=== PATIENT | female | born 1975 | race Caucasian/White ===

== ENCOUNTER 2019-07-30 21:00 | Inpatient (IN) ==
[2019-07-30] MEDS ORDERED: 0.9 % SODIUM CHLORIDE 1,000 ML IV ONE (21:28)
--- NOTE | 2019-07-30 21:40 | Emergency Department Note ---
General Adult HPI - General Chief complaint: Recheck/Abnormal Lab/Rx Stated complaint: kidney trouble Time Seen by Provider: 07/30/19 21:12 Source: patient Mode of arrival: ambulatory Limitations: no limitations - History of Present Illness HPI Narrative: 43-year-old female comes in after a 5-day history of general malaise fatigue and cough. No chest pain though. She does have coronary artery disease and has had 2 stents placed. Denies fever. She was seen earlier at urgent care by Dr. Juana Guillermo-I reviewed that note. Dr. Guillermo called me with report before sending the patient over. Patient was worked up with chest x-ray EKG and laboratory. Flu swab was negative. Chest x-ray and EKG were unrevealing. However her laboratory showed acute renal failure with new creatinine level of 3.5 she is also noted to have pyuria. Patient denies any urinary symptoms however - Related Data Home Medications Medication Instructions Recorded Confirmed Divalproex Sodium [Depakote] 1,500 mg PO BID 01/16/15 07/30/19 sertraline 100 mg tablet 75 mg PO QPM 03/24/16 07/30/19 Clopidogrel Bisulfate [Plavix] 75 mg PO DAILY 07/30/19 07/30/19 Furosemide [Lasix] 20 mg PO DAILY 07/30/19 07/30/19 Spironolactone [Aldactone] 25 mg PO DAILY 07/30/19 07/30/19 amLODIPine [Norvasc] 10 mg PO DAILY 07/30/19 07/30/19 Allergies Allergy/AdvReac Type Severity Reaction Status Date / Time phenytoin [From DILANTIN] Allergy Unknown Hives Verified 04/27/19 13:14 tape Allergy Uncoded 01/16/15 17:40 Review of Systems All systems ED: reviewed and negative except as stated. Past Medical History - Past Medical History Attestation: Yes: The following information was validated with the patient. PMF Narrative: Family History (Last Updated 04/27/19 @ 13:55 by Pramod Avendaño DO) Mother Substance abuse CVA (cerebral vascular accident) Father Diabetes mellitus Parkinsons disease Daughter Asthma Grandfather Malignant lung neoplasm Carcinoma of prostate Diabetes mellitus Sister Mental disorder Family/Other Bone cancer Family/Other Diabetes mellitus Medical History (Last Reviewed 07/30/19 @ 16:53 by Marlyn Guillermo DO) Cigarette smoker (Chronic) joint terminal attack controller (current) use of anticoagulants (Chronic) Coronary artery disease (Chronic ~02/2017) Diabetes mellitus (Resolved) Essential hypertension (Chronic) Overweight (BMI 25.0-29.9) (Chronic) Seizure disorder (Chronic) Prolapsed thoracic intervertebral disc (Chronic) Insomnia (Chronic) Chronic hepatitis C (Chronic) Cannabis dependence (Chronic) Anxiety, generalized (Chronic) Depression, major, recurrent (Chronic) Abdominal pain (Resolved) Degeneration of intervertebral disc (Resolved) Pain, dental (Resolved) Unintentional weight loss (Resolved) Past Surgical History (Last Updated 04/27/19 @ 13:54 by Pramod Avendaño DO) History of coronary artery stent placement (Acute ~02/2017) History of bilateral carpal tunnel release (Chronic) History of lumbar surgery (Chronic) History of total abdominal hysterectomy and bilateral salpingo-oophorectomy (Chronic) Medical history: Reports: CAD (coronary artery disease), DM, renal disease, seizures, other (chronic hep c). Denies: cancer, chronic narcotics, CVA, DVT, GERD, myocardial infarction, pneumonia, pulmonary embolus, TIA Psychiatric history: Reports: anxiety, depression Surgical history ED: Reports: back surgery, hysterectomy - Social History smoking status: Current every day smoker Alcohol use: Reports: None (04/27/2019) Drug use: Reports: none, marijuana Physical Exam No acute distress resting comfortably. Normocephalic atraumatic. Conjunctive are clear sclerae white nonicteric. No nasal discharge or congestion. Oropharynx is pink and moist. Overall poor dentition with multiple missing teeth. Neck is supple without lymphadenopathy thyromegaly or carotid bruit. Heart is regular rate and rhythm no murmur appreciated. Lungs are clear to auscultation bilaterally without wheezes rales rhonchi or respiratory distress. Abdomen soft nontender nondistended. No peritoneal signs or guarding. No pedal edema. +2 radial pulse. Alert oriented able to answer questions appropriate Limitations: no limitations Course Vital Signs Temperature 97.0 F 07/30/19 21:04 Pulse Rate 69 07/30/19 21:04 Respiratory Rate 16 07/30/19 21:04 Blood Pressure 114/75 07/30/19 21:04 Pulse Oximetry (%) 100 07/30/19 21:04 Temperature 97.0 F 07/30/19 21:04 Pulse Rate 70 07/30/19 23:16 Respiratory Rate 16 07/30/19 21:04 Blood Pressure 128/82 07/30/19 23:16 Pulse Oximetry (%) 100 07/30/19 23:16 Medical Decision Making - Lab Data Lab results reviewed: Yes I reviewed the patient's lab results. Lab Results 07/30/19 07/30/19 07/30/19 Range/Units 21:37 21:37 21:37 POC Hct 32.0 L (36.0-48.0) % VBG Lactic Acid 1.2 (0.5-2.0) mmol/L POC Sodium 134 (133-145) mmol/L POC Potassium 3.2 L (3.3-5.1) mmol/L POC Chloride 102 (96-108) mmol/L POC Total CO2 23 (22-30) mmol/L POC BUN 35 H (6-20) mg/dl POC Creatinine 4.0 H (0.6-1.1) mg/dl POC Glucose 258 H (70-105) mg/dL POC WB Ioniz Calcium 1.12 L (1.16-1.32) mmol/L Magnesium 2.4 (1.6-2.5) mg/dL Troponin T < 0.01 (0-0.03) ng/ml NT-Pro-B Natriuret Pep 1947.0 H (0-125) pg/ml Lipase 28 (7-60) U/L Urine Color Urine Appearance Urine pH (5.0-9.0) Ur Specific [place] (1.000-1.035) Urine Protein (NEG) mg/dL Urine Glucose (UA) (NEG) mg/dL Urine Ketones (NEG) mg/dL Urine Occult Blood (<0.03) mg/dL Urine Nitrate (NEG) Urine Bilirubin (NEG) mg/dL Urine Urobilinogen (NEG) mg/dL Ur Leukocyte Esterase (NEG) /uL Urine RBC (0-1) /hpf Urine WBC (0-4) /hpf Ur Squamous Epith Cells (0-4) /hpf Ur Transition Epith Cell (0-2) /hpf Uric Acid Crystals (0) /hpf Urine Bacteria (0) /hpf Hyaline Casts (0-2) /lpf Urine Mucus (0) /hpf Ur Culture Indicated? 07/30/19 Range/Units 21:50 POC Hct (36.0-48.0) % VBG Lactic Acid (0.5-2.0) mmol/L POC Sodium (133-145) mmol/L POC Potassium (3.3-5.1) mmol/L POC Chloride (96-108) mmol/L POC Total CO2 (22-30) mmol/L POC BUN (6-20) mg/dl POC Creatinine (0.6-1.1) mg/dl POC Glucose (70-105) mg/dL POC WB Ioniz Calcium (1.16-1.32) mmol/L Magnesium (1.6-2.5) mg/dL Troponin T (0-0.03) ng/ml NT-Pro-B Natriuret Pep (0-125) pg/ml Lipase (7-60) U/L Urine Color Petra Urine Appearance Cloudy Urine pH 5.0 (5.0-9.0) Ur Specific [place] 1.021 (1.000-1.035) Urine Protein 100 A (NEG) mg/dL Urine Glucose (UA) Negative (NEG) mg/dL Urine Ketones Neg (NEG) mg/dL Urine Occult Blood 0.03 A (<0.03) mg/dL Urine Nitrate Neg (NEG) Urine Bilirubin Neg (NEG) mg/dL Urine Urobilinogen 2.0 A (NEG) mg/dL Ur Leukocyte Esterase 250 A (NEG) /uL Urine RBC 21 H (0-1) /hpf Urine WBC 70 H (0-4) /hpf Ur Squamous Epith Cells 7 H (0-4) /hpf Ur Transition Epith Cell 1 (0-2) /hpf Uric Acid Crystals Few A (0) /hpf Urine Bacteria 0 (0) /hpf Hyaline Casts 45 H (0-2) /lpf Urine Mucus Mod (0) /hpf Ur Culture Indicated? No Reviewed recent labs from urgent care as above - Radiology Data Radiology results reviewed: Yes I reviewed the patient's radiology results. CT scan of the abdomen pelvis without contrast shows asymmetric edema of the right kidney consistent with pyelonephritis Disposition Pt seen by SPOT CHECKER/PA only: No Clinical Impression: Pyelonephritis Acute renal failure Qualifiers: Acute renal failure type: unspecified Qualified Code(s): N17.9 - Acute kidney failure, unspecified Summary: New onset acute renal failure with creatinine going from 1.7 now to 3.5. She is still making urine but it is quite viscous and even pyuria. Laboratory ordered along with CT scan of the abdomen pelvis without contrast. Start IV fluids We gave her some hydrocodone for her back pain. Start Rocephin for pyelonephritis. CT scan is consistent with right-sided pyelonephritis. I briefly discussed the situation with the patient and let her know her results Discussed findings with hospitalist, Dr. Dyer. He agreed to accept the patient for further care and evaluation in the hospital. I also discussed the case with Dr. Newberry, operator cavity pump, who will consult on the patient tomorrow. Disposition: Xfer As Inpt ([facility]) Condition: Fair Referrals: Cj Au ARNP [Primary Care Provider] - Missael Newberry MD [Physician] -
[2019-07-30 21:49] LABS: POC Blood Urea Nitrogen 35 mg/dl (6-20); POC CO2 23 mmol/L (22-30); POC Calcium, Ionized 1.12 mmol/L (1.16-1.32); POC Chloride 102 mmol/L (96-108); POC Glucose, Random 258 mg/dL (70-105); POC Potassium 3.2 mmol/L (3.3-5.1); POC Sodium 134 mmol/L (133-145)
[2019-07-30] MEDS ORDERED: HYDROcodone/APAP 5/325MG TABLET PO ONE (22:26)
[2019-07-30 22:43] LABS: Appearance,Urine CLOUDY; Bacteria,Urine 0 /hpf (0); Bilirubin,Urine NEG (NEG); Color,Urine AMBER; Culture Indicated,Urine NO; Glucose,Urine (UA) NEGATIVE (NEG); Ketones,Urine NEG (NEG); Leukocyte Esterase,Urine 250 /uL (NEG); Mucus,Urine MOD /hpf (0); Nitrate,Urine NEG (NEG); Protein,Urine 100 mg/dL (NEG); Specific Gravity,Urine 1.021 (1.000-1.035); Uric Acid Crystals,Urine FEW /hpf (0); Urine Blood 0.03 mg/dL (<0.03); Urine Hyaline Cast 45 /lpf (0-2); Urine RBC 21 /hpf (0-1); Urine Squamous Epithelial Cell 7 /hpf (0-4); Urine Transitional Epi Cells 1 /hpf (0-2); Urine WBC 70 /hpf (0-4)
[2019-07-30] MEDS ORDERED: cefTRIAXone 1 GM VIAL IV ONE (23:13)
--- NOTE | 2019-07-31 01:07 | Internal Med History&Physical ---
Medical - H&P: [facility] Patient information: Note initiated : 07/31/19 at 1:07 am Service Date, if different from initiated Date: [] Patient: Dawn Yang 43 y/o F admitted on 07/31/19 for kidney trouble. Chief Complaint: [Fever, chills, body ache and weakness for 4days] History of present illness: Ms. Yang is a 43 year old F with a history of CAD status post stenting in May 2018 and March 2017, currently smoker, history of diabetes, and hepatitis C who presented to the ER due to fever, chills, body ache and weakness for 4 days. Patient also states that she had nausea, vomiting and watery diarrhea 2 days ago associated with intermittent mild lower abdominal pain. In the ER, UA was positive and a CT abdomen showed pyelonephritis. When I saw this patient in the ER, abdomen symptoms mentioned above, she denied any other symptoms. All systems: reviewed and no additional remarkable complaints except as stated (Fever, chills, nausea, vomiting, abdominal pain, body ache and weakness) Medical - H&P: H Medical history: Hepatitis C, CAD, history of diabetes, Family history: reviewed and not pertinent (Father had a diabetes, Parkinson's disease, and skin cancer) Smoking status: Current every day smoker Drug use: marijuana Alcohol use: none Medical - H&P: Meds Home Medications Medication Instructions Recorded Confirmed Type Divalproex Sodium [Depakote] 1,500 mg PO BID 01/16/15 07/31/19 History sertraline 100 mg tablet 75 mg PO QPM 03/24/16 07/31/19 History Clopidogrel Bisulfate [Plavix] 75 mg PO DAILY 07/30/19 07/30/19 History Furosemide [Lasix] 20 mg PO DAILY 07/30/19 07/30/19 History Spironolactone [Aldactone] 25 mg PO DAILY 07/30/19 07/30/19 History amLODIPine [Norvasc] 10 mg PO DAILY 07/30/19 07/30/19 History Allergies Allergy/AdvReac Type Severity Reaction Status Date / Time phenytoin [From DILANTIN] Allergy Unknown Hives Verified 04/27/19 13:14 tape Allergy Uncoded 01/16/15 17:40 Medical - H&P: Exam - Constitutional Vitals: Temp Pulse Resp BP Pulse Ox 97.7 F 66 20 123/76 100 07/31/19 00:48 07/31/19 00:16 07/31/19 00:48 07/31/19 00:48 07/31/19 00:48 - Other Additional findings: General: No acute distress Head: Atraumatic, normocephalic Eyes/N/T: PERRL, EOMI Neck: neck supple, no thyroid megaly CV: RRR, No murmurs, Pulm: CTA, no crackles or wheezing Abd: soft, mild tenderness over lowwer abd, +BS x4. mild CVA tenderness Ext: No edema, cyanosis or tenderness. Neuro: A+OX3, grossly no focal neurological deficits Skin: warm/dry Psych: normal mood Medical - H&P: Reslt - Labs Labs: Cardiac Enzymes 07/30/19 Range/Units 21:37 Troponin T < 0.01 (0-0.03) ng/ml Urine 07/30/19 Range/Units 21:50 Urine Color Petra Urine Appearance Cloudy Urine pH 5.0 (5.0-9.0) Ur Specific [place] 1.021 (1.000-1.035) Urine Protein 100 A (NEG) mg/dL Urine Glucose (UA) Negative (NEG) mg/dL Medical - H&P: A/P - Narrative A/P Narrative: Assessment: 1. Acute pyelonephritis 2. MARTÍNEZ on chronic kidney failure 3. Current smoker 4. CAD, s/p stenting 5. DM type 2 6. Hx of seizure disorder 7. Chronic hepatitis C 8. Acute hypoxic respiratory failure 9. Hypokalemia Plan: 1. UA compatible with urinary tract infection and CT suggestive of pyelonephritis (as per ER physician) Ceftriaxone was started in the ER, continue ceftriaxone Blood culture and urine culture Continue gentle IV fluids 2. Avoid nephrotoxic meds Intake and output, repeat the renal function in morning. IV fluid 3. Smoking cessation counseled. Nicotine patch if necessary 4. Continue Plavix, added aspirin. Patient is not on statin. Liver function ordered and results pending. If liver function normal, I start Lipitor 5. Continue home divalproex for hx of seizure 6. Patient had one episode of desaturation, pulse ox. Oxygen therapy if necessary. 7. Potassium was given, repeat has minimal 8. Patient states that she has had diabetes in the past. Now she is not on any diabetic meds. Diabetic diet Hemoglobin A1c Insulin sliding scale 9. Patient home meds including Lasix and spironolactone. BNP. May order echocardiogram if BNP is elevated. 10. DVT prophylaxis: Heparin 11. CODE STATUS: Full
[2019-07-31 01:20] LABS: Amphetamine Screen,Urine NONE DETECTED (NONDETECTED); Barbiturate Screen,Urine NONE DETECTED (NONDETECTED); Benzodiazepines Screen,Urine NONE DETECTED (NONDETECTED); Cannabinoid Screen,Urine SUSPECT POSITIVE (NONDETECTED); Cocaine Screen,Urine NONE DETECTED (NONDETECTED); Opiate Screen,Urine NONE DETECTED (NONDETECTED); Oxycodone, Urine Screen NONE DETECTED (NONDETECTED); Phencyclidine Screen,Urine NONE DETECTED (NONDETECTED)
[2019-07-31] MEDS ORDERED: cefTRIAXone 1 GM in DEXTROSE 5% IN WATER 50 ML IV SCH (01:30)
[2019-07-31] MEDS ORDERED: ONDANSETRON 4 MG ODT TABLET SL PRN (01:30)
[2019-07-31] MEDS ORDERED: DEXTROSE 50% 50 ML VIAL IV PRN (01:38)
[2019-07-31] MEDS ORDERED: DEXTROSE 31 GM ORAL.SUSP PO PRN (01:38)
[2019-07-31] MEDS: 0.9 % SODIUM CHLORIDE 1,000 ML IV SCH ×3 (02:00→14:32)
--- NOTE | 2019-07-31 04:33 | Cat Scan Report ---
CLINICAL INFORMATION: Pyuria. Acute renal failure. COMPARISON: Abdomen and pelvic CT 11/30/2014 TECHNIQUE: 0.625 mm helical slices were obtained from the mid heart through the subtrochanteric regions. Following reconstruction, 2.5 mm sagittal, coronal and axial reformatted images were processed and reviewed at bone and soft tissue windows.The exam was performed using radiation dose optimization techniques including, but not limited to, automated exposure control, adjustment of the mA and/or kV according to patient size and use of iterative reconstruction technique. FINDINGS: Both noncontrasted kidneys are normal in size: The right is 11.5 x 6.4 cm and the left is 11.5 x 6 cm. The attenuation of the right kidney is mildly inhomogeneous supportive of diffuse inflammation. There is also mild inflammation or edema in the right perinephric space extending into the right paracolic gutter. There is no stone, hydronephrosis or discrete abscess. The lung bases show no abnormality - there are no pleural effusions. The visualized heart is normal. Abdominal images show the noncontrasted liver is normal. The gallbladder is surgically absent. Intrahepatic and common bile ducts are normal caliber: CBD is 5 mm. Both noncontrast adrenal glands, spleen, pancreas and aorta are normal. There is no free air, or adenopathy. Pelvic images show urinary bladder is unremarkable. The uterus is anteflexed and normal in size: 6.5 x 4 cm. Both ovaries are unremarkable. The stomach, small and large bowel are grossly normal. Bone windows show L3-4 and L4-5 anterior/posterior fusion/laminectomy changes provided by her body grafts, pedicle screws and interbody strut. Alignment is anatomic. There is severe L2-3 degenerative disc disease has accelerated since previous study resulting in severe central canal, right lateral recess IV foraminal narrowing. Large Schmorl's nodes invaginating the L2 vertebral body resulting in moderate compression which has progressed considerably. IMPRESSION: 1. Mild inhomogeneity of the right renal parenchyma with right perinephric edema or inflammation including the paracolic gutter. The possibility of nephritis should be entertained. No evidence of discrete abscess or hydronephrosis. 2. Severe L2-3 Central canal, right lateral recess and IV foraminal stenosis impinging the exiting right L2 and descending right L3 nerve root. Please correlate with radiculopathy. Interpreted and Authenticated by: Miller Pascual 07/31/19
[2019-07-31] MEDS: 0.9 % SODIUM CHLORIDE 10 ML SYRINGE IV SCH ×3 (05:24→20:48)
[2019-07-31] MEDS: HYDROcodone/APAP 5/325MG TABLET PO PRN ×3 (06:30→22:59)
[2019-07-31] MEDS: PANTOPRAZOLE 40 MG TABLET PO SCH (07:49)
[2019-07-31] MEDS: INSULIN LISPRO 1 UNIT/0.01 ML UNIT SQ SCH ×4 (08:35→20:55)
[2019-07-31] MEDS ORDERED: FUROSEMIDE 20 MG TABLET PO SCH (09:00)
[2019-07-31] MEDS ORDERED: SPIRONOLACTONE 25 MG TABLET PO SCH (09:00)
[2019-07-31] MEDS: ASPIRIN 81 MG TAB.CHEW PO SCH (09:12)
[2019-07-31] MEDS: amLODIPine 10 MG TABLET PO SCH (09:12)
[2019-07-31] MEDS: DIVALPROEX SODIUM 250 MG TABLET PO SCH ×2 (09:12→20:47)
[2019-07-31] MEDS: CLOPIDOGREL 75 MG TABLET PO SCH (09:13)
[2019-07-31] MEDS: HEPARIN 5,000 UNIT/ML VIAL SQ SCH ×2 (09:13→20:48)
[2019-07-31] MEDS: POTASSIUM CHLORIDE 20 MEQ TABLET PO SCH ×3 (09:13→11:53)
--- NOTE | 2019-07-31 13:22 | Internal Med Progress Note ---
Medical - PN: Subj Patient information: Note initiated : 07/31/19 at 1:13 pm Service Date, if different from initiated Date: [] Patient: Dawn Yang a 43 y/o F admitted on 07/31/19 for kidney trouble. Chief Complaint: [] Interval history: Ms. Yang is a 43 year old F with a history of CAD status post stenting in J an2018 and March 2017, currently smoker, history of diabetes, and hepatitis C who presented to the ER due to fever, chills, body ache and weakness for 4 days. Patient also states that she had nausea, vomiting and watery diarrhea 2 days ago associated with intermittent mild lower abdominal pain. In the ER, UA was positive and a CT abdomen showed pyelonephritis. When I saw this patient in the ER, abdomen symptoms mentioned above, she denied any other symptoms. 07/31 - Constitutional Vitals: Vital Signs Temp Pulse Resp BP Pulse Ox 98.1 F 64 16 111/68 97 07/31/19 11:55 07/31/19 11:55 07/31/19 11:55 07/31/19 11:55 07/31/19 11:55 Period Temp Pulse Resp BP Sys/Interiano Pulse Ox Last 24 Hr 97.0 F-98.2 F 62-76 16-20 102-133/63-82 84-100 Intake and Output 07/30/19 07/31/19 07/31/19 21:59 05:59 13:59 Intake Total 1000 Output Total 750 550 Balance 250 -550 Weight 85.275 kg 86.137 kg Intake & Output: Intake & Output 07/30/19 07/31/19 07/31/19 21:59 05:59 13:59 Intake Total 1000 Output Total 750 550 Balance 250 -550 Weight 85.275 kg 86.137 kg Intake: IV 1000 Sodium Chloride 0.9% 1,000 ml @ 1000 Wide Open IV BOLUS ONE Rx#: [id number] Output: Void Amount 750 550 Other: Urine Appearance Clear Urine Color Dark Yellow Urine Odor Strong Exam: General: Alert, Awake, No acute Distress Eyes/N/T: EOMI, Head/Neck: neck supple, CV: RRR, No murmurs, Pulm: Clear b/l, no wheezing/rhonchi/rales Abd: soft, mild lower abd tender, +BS x4, mild cva tenderness Ext: no clubbing/cyanosis/edema Neuro: Alert, no focal deficits, moves all extremities, Skin: warm/dry Medical - PN: Obj Da - Labs CBC & Chem 7: 07/31/19 13:26 07/31/19 13:26 Labs: Abnormal Lab Results 07/31/19 07/30/19 07/30/19 05:25 21:50 21:50 POC Hct POC Potassium POC BUN POC Creatinine POC Glucose POC WB Ioniz Calcium NT-Pro-B Natriuret Pep 1255.0 H Urine Protein 100 A Urine Occult Blood 0.03 A Urine Urobilinogen 2.0 A Ur Leukocyte Esterase 250 A Urine RBC 21 H Urine WBC 70 H Ur Squamous Epith Cells 7 H Uric Acid Crystals Few A Hyaline Casts 45 H U Marijuana (THC) Screen Suspect positive A 07/30/19 21:37 POC Hct 32.0 L POC Potassium 3.2 L POC BUN 35 H POC Creatinine 4.0 H POC Glucose 258 H POC WB Ioniz Calcium 1.12 L NT-Pro-B Natriuret Pep 1947.0 H Urine Protein Urine Occult Blood Urine Urobilinogen Ur Leukocyte Esterase Urine RBC Urine WBC Ur Squamous Epith Cells Uric Acid Crystals Hyaline Casts U Marijuana (THC) Screen Meds: Medications Hydrocodone Bitart/Acetaminophen (Ensign 5/325mg) 1 tab PO Q8HP PRN; Protocol PRN Reason: Per Pain Protocol Stop: 08/03/19 01:29 Last Admin: 07/31/19 06:30 Dose: 1 tab Documented by: Amlodipine Besylate (Norvasc) 10 mg PO DAILY [facility] Last Admin: 07/31/19 09:12 Dose: 10 mg Documented by: Aspirin (Aspirin) 81 mg PO DAILY [facility] Last Admin: 07/31/19 09:12 Dose: 81 mg Documented by: Ceftriaxone Sodium (Rocephin) 1 gm IV Q24H [facility] Clopidogrel Bisulfate (Plavix) 75 mg PO DAILY [facility] Last Admin: 07/31/19 09:13 Dose: 75 mg Documented by: Dextrose (Dextrose 50%) 0 ml IV UD PRN PRN Reason: Hypoglycemia Diagnostic Test (Pha) (Accu-Chek) 1 each FS ACHS [facility] Last Admin: 07/31/19 11:58 Dose: 1 each Documented by: Divalproex Sodium (Depakote Delayed Release) 1,500 mg PO BID [facility] Last Admin: 07/31/19 09:12 Dose: 1,500 mg Documented by: Furosemide (Lasix) 20 mg PO DAILY [facility] Last Admin: 07/31/19 09:12 Dose: 20 mg Documented by: Glucose (Insta-Glucose) 15 gm PO PRN PRN PRN Reason: Hypoglycemia Heparin Sodium (Porcine) (Heparin) 5,000 unit SQ Q12 [facility] Last Admin: 07/31/19 09:13 Dose: 5,000 unit Documented by: Sodium Chloride (Sodium Chloride 0.9%) 1,000 mls @ 100 mls/hr IV .Q10H [facility] Last Admin: 07/31/19 12:58 Dose: Not Given Documented by: Insulin Human Lispro (Humalog) 0 unit SQ ACHS [facility]; Protocol Last Admin: 07/31/19 11:59 Dose: Not Given Documented by: Morphine Sulfate (Morphine) 2 mg IV Q4HP PRN; Protocol PRN Reason: Per Pain Protocol Last Admin: 07/31/19 11:53 Dose: 2 mg Documented by: Ondansetron HCl (Zofran) 4 mg IV Q6HP PRN PRN Reason: Nausea And Vomiting Ondansetron HCl (Zofran Odt) 4 mg SL Q6HP PRN PRN Reason: Nausea And Vomiting Pantoprazole Sodium (Protonix) 40 mg PO QAMAC [facility] Last Admin: 07/31/19 07:49 Dose: 40 mg Documented by: Sertraline HCl (Zoloft) 75 mg PO QPM [facility] Sodium Chloride (Saline Flush) 10 ml IV Q8 [facility] Last Admin: 07/31/19 12:57 Dose: 10 ml Documented by: Spironolactone (Aldactone) 25 mg PO DAILY [facility] Last Admin: 07/31/19 09:13 Dose: 25 mg Documented by: Medical - PN: A/P - Time Spent With Patient Total time spent is greater than 50% in coordination of care (as documented) at patient's floor/unit and/or counseling patient: - Narrative A/P Narrative: A: * Acute pyelonephritis -leukocytosis improving, WBC 19k on admit * MARTÍNEZ on CKD III: -Improving, Cr 3.5 on admit * Current smoker * CAD, s/p stenting * DM type 2 * Hx of seizure disorder * Chronic hepatitis C * Hypokalemia * Patient states that she has had diabetes in the past. Now she is not on any diabetic meds. Plan: -ceftriaxone -Blood culture and urine culture -IVF's -Nephrology following -Avoid nephrotoxic meds -Smoking cessation counseled. Nicotine patch if necessary -Continue Plavix/aspirin -Patient is not on statin. Liver function ordered and results pending. If liver function normal, I start Lipitor -Continue home divalproex for hx of seizure -Hemoglobin A1c, SSI - Patient home meds including Lasix and spironolactone. - DVT prophylaxis: Heparin CODE STATUS: Full Medical - PN: Qual - VTE Deep Vein Thrombosis/Pulmonary Embolism Present on Admission: No
[2019-07-31 14:04] LABS: Hematocrit 29.1 % (34.1-44.9); Hemoglobin 9.6 g/dL (11.2-15.7); Mean Cell Volume 85.6 fL (80.0-100.0); Mean Platelet Volume 10.2 fL (7.4-10.4); Platelet Count 235 K/mcL (140-440); Red Cell Distribution Width 16.2 % (11.5-14.5); WBC 16.4 K/mcL (4.50-11.00)
[2019-07-31 14:25] LABS: ALT/SGPT 19 U/l (0-40); AST/SGOT 23 U/l (0-37); Albumin 2.8 gm/dL (3.2-5.2); Albumin/Globulin Ratio 0.8 (1.0-2.3); Alkaline Phosphatase 91 U/L (39-117); Bilirubin,Direct < 0.2 mg/dL (0.0-0.3); Bilirubin,Total 0.2 mg/dL (0.0-1.0); Blood Urea Nitrogen 35 mg/dl (6-20); Calcium 8.5 mg/dl (8.6-10.4); Carbon Dioxide 19 mmol/L (22-30); Globulin 3.6 gm/dL (2.2-3.7); Glucose 133 mg/dL (70-105); Lactate Dehydrogenase 175 U/L (94-250); Phosphorous 3.6 mg/dL (2.7-4.5); Triglycerides 173 mg/dl (<150); Uric Acid 9.4 mg/dL (2.5-8.0)
[2019-07-31 14:27] LABS: Chloride 105 mmol/L (96-108); Glomerular Filtration Rate 21
[2019-07-31 14:31] LABS: Anisocytosis 1+ (NONE SEEN); Band Neutrophils % 6 % (0-10); Lymphocytes % 6 % (15-49); Monocytes % (Manual) 3 % (1-12); Ovalocytes FEW (NONE SEEN); Platelet Estimate NORMAL (NORMAL); RBC Morphology ABNORM (NORMAL); Reactive Lymphocytes 1 % (0-2); Segmented Neutrophils % 84 % (38-78)
[2019-07-31] MEDS: cefTRIAXone 1 GM VIAL IV SCH (15:24)
--- NOTE | 2019-07-31 18:03 | Nephrology Consult Note ---
History of Present Illness - Reason for Consult Patient information: Note initiated : 07/31/19 at 5:11 pm Service Date, if different from initiated Date: [] Patient: Dawn Yang 43 y/o F admitted on 07/31/19 for kidney trouble. Chief Complaint: [] Consult date: 07/30/19 acute renal failure, chronic renal failure Requesting physician: Alessandro Patel - Chief Complaint fever, pyuria declining renal function - History of Present Illness The patient is a 43-year-old woman who is scheduled to be seen in my clinic later this month for evaluation and treatment of an elevated serum creatinine of 1.7 mg/dL on labs from June 21, 2019. She has a history of diabetes which resolved with about a 40 pound weight loss in the setting of methamphetamine use and abuse. Therefore she does not require any antidiabetic therapy at the time of her admission. Her methamphetamine use dates back a number of years and includes both IV and inhalation. She reports she contracted hepatitis C by sharing needles with her sister, and now she was giving thought to having her hepatitis C treated as she is trying to break the cycle of drug use and addiction by a mixture of both inpatient and outpatient therapy as well as islam based therapy. In terms of her pre-existing renal disease it does in the [facility] EMR that she carries the diagnosis of proteinuric diabetic renal disease starting in 2016. In 2018 she had PCI to her LAD. Subsequently she was admitted to [facility] the first week of April 2019, with chest pain of 4 days duration. At that time, a random urinalysis at the same institution demonstrated 3+ proteinuria. Her creatinine was 1.5. She then underwent multiple IV contrast procedures, the first was a left heart cath and placement of 2 stents in the LAD in early April 2019. Also noted is a diagonal vessel with a lesion that is "jailed" by her 2018 6 stent deployments. She has a known cardiomyopathy with primarily grade 1/3 diastolic dysfunction and some elevated pulmonary artery pressures in the setting of methamphetamine abuse. There were some chest pain reported during her stress test which resulted in the aforementioned left heart cath and PCI. She was readmitted with chest pain, accelerated hypertension and sob. Chest CTA iwas performed which did not reveal any pulmonary embolus oR TAA. According to the patient's medical records her blood pressure which was in excess of 220/120 with "easily controlled" with IV labetalol and transition to oral labetalol. She remained on RAASI therapy in the form of spironolactone, who is receiving ibuprofen at doses of 800 mg at a time as well as furosemide, amlodipine, and labetalol. Renal ultrasound at that time showed normal size kidneys 11.3 and 11.4 cm in length right and left respectively. There is no Doppler flow evidence of renal artery stenosis nor was there any hydronephrosis on the study of June 19. There is no eosinophilia noted and her creatinine was 1.7 by the time of discharge on around June 21, 2019. Yesterday, she was seen earlier at urgent and then sent to the ED. Patient was worked up with chest x-ray EKG and laboratory. Flu swab was negative. Chest x- ray and EKG were unrevealing. However her laboratory showed acute renal failure with new creatinine level of 3.5 she is also noted to have pyuria. Patient denies any urinary symptoms however. She was admitted with the diagnosis of pyelonephritis, however she did not appear particularly toxic, she did have pyuria, this AM, there was an elevated white coun with a left shift, and no urinary tract symptoms to speak of... The patient had blood and urine cultures obtained and was placed on antibiotics and a renal consult is requested. Nephrotoxic medications have been discontinued, however her renal function has followed and unrelenting downward trend to this morning's value of around 4.0 mg/dL. Review of Systems Constitutional: chills, fatigue, fever(s) Respiratory: other (sob) Gastrointestinal: abdominal pain Musculoskeletal: arthralgias Psychiatric: as per HPI Endocrine: as per HPI Hematologic/Lymphatic: as per HPI Past History Past medical history: Medical history: Hepatitis C, CAD, history of diabetes, Family history: reviewed and not pertinent (Father had a diabetes, Parkinson's disease, and skin cancer) Smoking status: Current every day smoker Drug use: marijuana Alcohol use: none Medical - H&P: Meds Home Medications Medication Instructions Recorded Confirmed Type Divalproex Sodium [Depakote] 1,500 mg PO BID 01/16/15 07/31/19 History sertraline 100 mg tablet 75 mg PO QPM 03/24/16 07/31/19 History Clopidogrel Bisulfate [Plavix] 75 mg PO DAILY 07/30/19 07/30/19 History Furosemide [Lasix] 20 mg PO DAILY 07/30/19 07/30/19 History Spironolactone [Aldactone] 25 mg PO DAILY 07/30/19 07/30/19 History amLODIPine [Norvasc] 10 mg PO DAILY 07/30/19 07/30/19 History Allergies Allergy/AdvReac Type Severity Reaction Status Date / Time phenytoin [From DILANTIN] Allergy Unknown Hives Verified 04/27/19 13:14 tape Allergy Uncoded 01/16/15 17:40 Medications and Allergies Home Medications Medication Instructions Recorded Confirmed Type Divalproex Sodium [Depakote] 1,500 mg PO BID 01/16/15 07/31/19 History sertraline 100 mg tablet 75 mg PO QPM 03/24/16 07/31/19 History Clopidogrel Bisulfate [Plavix] 75 mg PO DAILY 07/30/19 07/30/19 History Furosemide [Lasix] 20 mg PO DAILY 07/30/19 07/30/19 History Spironolactone [Aldactone] 25 mg PO DAILY 07/30/19 07/30/19 History amLODIPine [Norvasc] 10 mg PO DAILY 07/30/19 07/30/19 History Allergies Allergy/AdvReac Type Severity Reaction Status Date / Time phenytoin [From DILANTIN] Allergy Intermediate Hives Verified 07/31/19 06:05 tape Allergy Uncoded 01/16/15 17:40 Exam - Vital Signs Vital signs: Temp Pulse Resp BP Pulse Ox 36.6 C 64 16 115/70 97 07/31/19 16:00 07/31/19 16:00 07/31/19 16:00 07/31/19 16:00 07/31/19 16:00 - General Appearance General appearance: well-developed, appears started age EENT: ATNC, PERRL Neck: no JVD, no thyromegaly, no carotid bruit, supple Respiratory: no kyphosis, clear Cardiology: no murmurs, no rub, no gallops, no edema Gastrointestinal: normoactive bowel sounds, no tenderness, no guarding, no masses Neurologic: no focal deficit Musculoskeletal: deformities (old left femur fracture), no erythema, no cyanosis, no clubbing Psychiatric: mood/affect appropriate Results - Lab Results 07/31/19 13:26 07/31/19 13:26 Most recent lab results Calcium 8.5 mg/dl (8.6-10.4) L 07/31/19 13:26 Phosphorus 3.6 mg/dL (2.7-4.5) 07/31/19 13:26 Magnesium 2.1 mg/dL (1.6-2.5) 07/31/19 13:26 Assessment and Plan (1) Acute on chronic renal failure Underlying CCKD g3/a3 probably due to DM > HTN nephrosclerosis > Hep C related nephritis =/- membranous GN from NSAIDS 1. FeNa 2. Urine protein/creatinie ratio 3. U/S just done at [facility] so no repeat needed 4. Holding RAASI therapy till situation clarified 5. Stop NSAIDS forever Acute phase of renal failure has at least the following D/D: Pre-renal azotemia, ATN, Contrast ATN, Acute decline in BP => dysautoregulation of RBF and decreased GFR, NSAIDs plus/minus RAASI therapy, atheroembolie post left heart cath 04/2019 (non-catastrophic form). 1. Repeat U/A 2. C3/C4 levels, ESR, CRP 3. KUB to look for delayed nephrogram seen in contrast nephropathy 4. No CT evedence of obstruction or hydro 5. Perinephric stranding is non-specific and does not PROVE pyelo, mearly supports the Dx in the appropriate clinical situation. This is not a classic case. 6. Methamphetamine related ARF Monitor Avoid further nephrotoxic insults Dx evaluation as above plus urine eos Status: Acute Priority: High Qualifiers: Chronic kidney disease stage: stage 3 (moderate) Qualified Code(s): N17.8 - Other acute kidney failure; N18.3 - Chronic kidney disease, stage 3 (moderate) (2) Chronic hepatitis C Status: Chronic (3) Essential hypertension Status: Chronic
[2019-07-31] MEDS: SERTRALINE 50 MG TABLET PO SCH (20:47)
[2019-08-01] MEDS: 0.9 % SODIUM CHLORIDE 1,000 ML IV SCH ×2 (00:11→08:30)
[2019-08-01] MEDS: ONDANSETRON 4 MG/2 ML VIAL IV PRN ×2 (04:19→12:08)
[2019-08-01] MEDS: 0.9 % SODIUM CHLORIDE 10 ML SYRINGE IV SCH ×3 (04:31→21:24)
--- NOTE | 2019-08-01 06:54 | Internal Med Progress Note ---
Medical - PN: Subj Patient information: Note initiated : 08/01/19 at 6:51 am Service Date, if different from initiated Date: [] Patient: Dawn Yang a 43 y/o F admitted on 07/31/19 for kidney trouble. Chief Complaint: [] Interval history: Ms. Yang is a 43 year old F with a history of CAD status post stenting in J an2018 and March 2017, currently smoker, history of diabetes, and hepatitis C who presented to the ER due to fever, chills, body ache and weakness for 4 days. Patient also states that she had nausea, vomiting and watery diarrhea 2 days ago associated with intermittent mild lower abdominal pain. In the ER, UA was positive and a CT abdomen showed pyelonephritis. When I saw this patient in the ER, abdomen symptoms mentioned above, she denied any other symptoms. 07/31 Slept better and feeling better overall. Did have an episode of nausea vomiting earlier. Review of Systems: denies headache/fever/chills/chest pain/cough/dyspnea/. Otherwise see above. - Constitutional Vitals: Vital Signs Temp Pulse Resp BP Pulse Ox 97.7 F 62 20 134/84 98 08/01/19 04:27 08/01/19 04:27 08/01/19 04:27 08/01/19 04:27 08/01/19 04:27 Period Temp Pulse Resp BP Sys/Interiano Pulse Ox Last 24 Hr 97.0 F-98.5 F 58-72 16-20 111-141/68-84 94-100 Intake and Output 07/31/19 08/01/19 08/01/19 21:59 05:59 13:59 Intake Total 360 1565 Output Total 300 Balance 360 1265 Weight 89.857 kg Intake & Output: Intake & Output 07/31/19 08/01/19 08/01/19 21:59 05:59 13:59 Intake Total 360 1565 Output Total 300 Balance 360 1265 Weight 89.857 kg Intake: IV 965 Sodium Chloride 0.9% 1,000 ml @ 965 100 mls/hr IV .Q10H [facility] Rx#: [id number] Oral 360 600 Output: Void Amount 250 Estimated Blood Loss 50 Other: Meal Lunch Percent of Meal Consumed 50% Feeding Ability Independent Urine Appearance Sediment Urine Color Light Petra # Voids 1 1 Exam: General: Alert, Awake, No acute Distress Eyes/N/T: EOMI, Head/Neck: neck supple, CV: RRR, No murmurs, Pulm: Clear b/l, no wheezing/rhonchi/rales Abd: soft, mild lower abd tender, +BS x4, mild cva tenderness Ext: no clubbing/cyanosis, mild b/l LE edema Neuro: Alert, no focal deficits, moves all extremities, Skin: warm/dry Medical - PN: Obj Da - Labs CBC & Chem 7: 08/01/19 05:41 08/01/19 05:41 Labs: Abnormal Lab Results 07/31/19 07/31/19 07/31/19 13:26 13:26 05:25 WBC 16.4 H RBC 3.40 L Hgb 9.6 L Hct 29.1 L POC Hct RDW 16.2 H Seg Neutrophils % 84 H Lymphocytes % 6 L RBC Morphology Abnorm A Anisocytosis 1+ A Ovalocytes Few A POC Potassium Carbon Dioxide 19 L POC BUN BUN 35 H Creatinine 2.6 H POC Creatinine Glucose 133 H POC Glucose Uric Acid 9.4 H Calcium 8.5 L POC WB Ioniz Calcium NT-Pro-B Natriuret Pep 1255.0 H Albumin 2.8 L Albumin/Globulin Ratio 0.8 L Triglycerides 173 H Urine Protein Urine Occult Blood Urine Urobilinogen Ur Leukocyte Esterase Urine RBC Urine WBC Ur Squamous Epith Cells Uric Acid Crystals Hyaline Casts U Marijuana (THC) Screen 07/30/19 07/30/19 07/30/19 21:50 21:50 21:37 WBC RBC Hgb Hct POC Hct 32.0 L RDW Seg Neutrophils % Lymphocytes % RBC Morphology Anisocytosis Ovalocytes POC Potassium 3.2 L Carbon Dioxide POC BUN 35 H BUN Creatinine POC Creatinine 4.0 H Glucose POC Glucose 258 H Uric Acid Calcium POC WB Ioniz Calcium 1.12 L NT-Pro-B Natriuret Pep 1947.0 H Albumin Albumin/Globulin Ratio Triglycerides Urine Protein 100 A Urine Occult Blood 0.03 A Urine Urobilinogen 2.0 A Ur Leukocyte Esterase 250 A Urine RBC 21 H Urine WBC 70 H Ur Squamous Epith Cells 7 H Uric Acid Crystals Few A Hyaline Casts 45 H U Marijuana (THC) Screen Suspect positive A Meds: Medications Hydrocodone Bitart/Acetaminophen (Ebony 5/325mg) 1 tab PO Q8HP PRN; Protocol PRN Reason: Per Pain Protocol Stop: 08/03/19 01:29 Last Admin: 07/31/19 22:59 Dose: 1 tab Documented by: Amlodipine Besylate (Norvasc) 10 mg PO DAILY [facility] Last Admin: 07/31/19 09:12 Dose: 10 mg Documented by: Aspirin (Aspirin) 81 mg PO DAILY [facility] Last Admin: 07/31/19 09:12 Dose: 81 mg Documented by: Ceftriaxone Sodium (Rocephin) 1 gm IV Q24H [facility] Last Admin: 07/31/19 15:24 Dose: 1 gm Documented by: Clopidogrel Bisulfate (Plavix) 75 mg PO DAILY [facility] Last Admin: 07/31/19 09:13 Dose: 75 mg Documented by: Dextrose (Dextrose 50%) 0 ml IV UD PRN PRN Reason: Hypoglycemia Diagnostic Test (Pha) (Accu-Chek) 1 each FS [facility] Last Admin: 07/31/19 20:54 Dose: 1 each Documented by: Divalproex Sodium (Depakote Delayed Release) 1,500 mg PO BID [facility] Last Admin: 07/31/19 20:47 Dose: 1,500 mg Documented by: Furosemide (Lasix) 20 mg PO DAILY [facility] Last Admin: 07/31/19 09:12 Dose: 20 mg Documented by: Glucose (Insta-Glucose) 15 gm PO PRN PRN PRN Reason: Hypoglycemia Heparin Sodium (Porcine) (Heparin) 5,000 unit SQ Q12 [facility] Last Admin: 07/31/19 20:48 Dose: 5,000 unit Documented by: Sodium Chloride (Sodium Chloride 0.9%) 1,000 mls @ 100 mls/hr IV .Q10H [facility] Last Admin: 08/01/19 00:11 Dose: 100 mls/hr Documented by: Insulin Human Lispro (Humalog) 0 unit SQ [facility]; Protocol Last Admin: 07/31/19 20:55 Dose: Not Given Documented by: Morphine Sulfate (Morphine) 2 mg IV Q4HP PRN; Protocol PRN Reason: Per Pain Protocol Last Admin: 08/01/19 04:30 Dose: 2 mg Documented by: Ondansetron HCl (Zofran) 4 mg IV Q6HP PRN PRN Reason: Nausea And Vomiting Last Admin: 08/01/19 04:19 Dose: 4 mg Documented by: Ondansetron HCl (Zofran Odt) 4 mg SL Q6HP PRN PRN Reason: Nausea And Vomiting Pantoprazole Sodium (Protonix) 40 mg PO QAMAC [facility] Last Admin: 07/31/19 07:49 Dose: 40 mg Documented by: Sertraline HCl (Zoloft) 75 mg PO QPM [facility] Last Admin: 07/31/19 20:47 Dose: 75 mg Documented by: Sodium Chloride (Saline Flush) 10 ml IV Q8 [facility] Last Admin: 08/01/19 04:31 Dose: Not Given Documented by: Spironolactone (Aldactone) 25 mg PO DAILY [facility] Last Admin: 07/31/19 09:13 Dose: 25 mg Documented by: Medical - PN: A/P - Time Spent With Patient Total time spent is greater than 50% in coordination of care (as documented) at patient's floor/unit and/or counseling patient: - Narrative A/P Narrative: A: * Acute pyelonephritis -leukocytosis improving, WBC 19k on admit * MARTÍNEZ on CKD III: -Improving, Cr 3.5 on admit * Current smoker * CAD, s/p stenting * DM type 2: A1c 6.7 * Hx of seizure disorder * Chronic hepatitis C * Hypokalemia * Patient states that she has had diabetes in the past. Now she is not on any diabetic meds. Plan: -ceftriaxone -Blood culture and urine culture -IVF's decrease -lasix/aldactone held for MARTÍNEZ -Nephrology following -Avoid nephrotoxic meds -Smoking cessation counseled. Nicotine patch if necessary -Continue Plavix/aspirin, Patient not on statin, start -Continue home divalproex for hx of seizure -SSI - DVT prophylaxis: Heparin CODE STATUS: Full Medical - PN: Qual - VTE Deep Vein Thrombosis/Pulmonary Embolism Present on Admission: No
[2019-08-01 07:02] LABS: Basophils # (Auto) 0.04 K/mcL (0.00-0.30); Basophils % (Auto) 0.4 % (0.0-2.0); Eosinophils # (Auto) 0.08 K/mcL (0.00-0.70); Eosinophils % (Auto) 0.8 % (0.0-7.0); Granulocytes % (Auto) 82.9 % (38.0-78.0); Hematocrit 29.4 % (34.1-44.9); Hemoglobin 9.6 g/dL (11.2-15.7); Lymphocytes # (Auto) 1.13 K/mcL (1.50-4.80); Mean Cell Volume 86.7 fL (80.0-100.0); Mean Corpuscular HGB Conc 32.7 g/dL (31.0-36.0); Mean Platelet Volume 10.5 fL (7.4-10.4); Monocytes % (Auto) 4.9 % (1.0-12.0); Platelet Count 227 K/mcL (140-440); RBC 3.39 M/mcL (3.59-5.38); Red Cell Distribution Width 16.3 % (11.5-14.5); WBC 10.3 K/mcL (4.50-11.00)
[2019-08-01] MEDS: PANTOPRAZOLE 40 MG TABLET PO SCH (07:14)
[2019-08-01] MEDS: INSULIN LISPRO 1 UNIT/0.01 ML UNIT SQ SCH ×4 (07:23→21:25)
[2019-08-01 07:34] LABS: Bilirubin,Direct < 0.2 mg/dL (0.0-0.3); C-Reactive Protein 8.9 mg/dl (0.0-0.8); Chloride 103 mmol/L (96-108)
[2019-08-01 07:49] LABS: ALT/SGPT 18 U/l (0-40); AST/SGOT 23 U/l (0-37); Albumin 2.5 gm/dL (3.2-5.2); Albumin/Globulin Ratio 0.7 (1.0-2.3); Alkaline Phosphatase 99 U/L (39-117); Bilirubin,Total 0.2 mg/dL (0.0-1.0); Blood Urea Nitrogen 29 mg/dl (6-20); Calcium 8.4 mg/dl (8.6-10.4); Carbon Dioxide 19 mmol/L (22-30); Globulin 3.4 gm/dL (2.2-3.7); Glomerular Filtration Rate 29; Glucose 167 mg/dL (70-105); Lactate Dehydrogenase 184 U/L (94-250); Phosphorous 3.8 mg/dL (2.7-4.5); Triglycerides 161 mg/dl (<150); Uric Acid 8.9 mg/dL (2.5-8.0)
[2019-08-01 07:56] LABS: Estimated Average Glucose(eAG) 146 mg/dL; Hemoglobin A1C 6.7 % HGB (4.0-6.0)
[2019-08-01 08:00] LABS: Sodium, Urine Random < 20 mmol/L
[2019-08-01] MEDS: CLOPIDOGREL 75 MG TABLET PO SCH (08:16)
[2019-08-01] MEDS: ASPIRIN 81 MG TAB.CHEW PO SCH (08:16)
[2019-08-01] MEDS: amLODIPine 10 MG TABLET PO SCH (08:16)
[2019-08-01] MEDS: HEPARIN 5,000 UNIT/ML VIAL SQ SCH ×2 (08:16→21:20)
[2019-08-01] MEDS: DIVALPROEX SODIUM 250 MG TABLET PO SCH ×2 (08:16→21:18)
[2019-08-01] MEDS: cefTRIAXone 1 GM VIAL IV SCH (08:24)
[2019-08-01 08:26] LABS: Erythrocyte Sedimentation Rate 84 mm/hr (0-20)
[2019-08-01] MEDS ORDERED: 0.9 % SODIUM CHLORIDE 1,000 ML IV SCH (08:30)
--- NOTE | 2019-08-01 11:57 | Discharge Summary ---
Medical - DS: Prov Patient information: Note initiated : 08/01/19 at 11:51 am Service Date, if different from initiated Date: [] Patient: Dawn Yang 43 y/o F admitted on 07/31/19 for kidney trouble. Chief Complaint: [] Date of admission: 07/31/19 00:33 Discharge date: 08/02/19 Primary care physician: LAKESHA Dominguez Consults: 07/30/19 Consult to Physician [CONS] Stat Comment: Consulting Provider: Efraín Dyer Reason For Exam: Physician to Consult Consult to Physician [CONS] Stat Comment: Consulting Provider: Missael Newberry Reason For Exam: Physician to Consult Medical - DS: Meds - Discharge Medications Prescriptions: Levofloxacin [Levaquin] 750 mg PO Q48 #2 tab Atorvastatin [Lipitor] 20 mg PO HS #30 tablet HYDROcodone/APAP 5/325MG [[place] 5-325Mg] 1 tab PO Q4HP PRN #10 tab PRN Reason: Per Pain Protocol Active and Home Medications: Home Medications Divalproex Sodium [Depakote] 1,500 mg PO BID 01/16/15 [History Confirmed 07/31/19 Last Taken 07/29/19] sertraline 100 mg tablet 75 mg PO QPM 03/24/16 [History Confirmed 07/31/19 Last Taken 07/27/19] Clopidogrel Bisulfate [Plavix] 75 mg PO DAILY 07/30/19 [History Confirmed 07/30/19 Last Taken Unknown] Furosemide [Lasix] 20 mg PO DAILY 07/30/19 [History Confirmed 07/30/19 Last Taken Unknown] Spironolactone [Aldactone] 25 mg PO DAILY 07/30/19 [History Confirmed 07/30/19 Last Taken Unknown] amLODIPine [Norvasc] 10 mg PO DAILY 07/30/19 [History Confirmed 07/30/19 Last Taken Unknown] Home Medications Divalproex Sodium [Depakote] 1,500 mg PO BID 01/16/15 [History Confirmed 07/31/19 Last Taken 07/29/19] sertraline 100 mg tablet 75 mg PO QPM 03/24/16 [History Confirmed 07/31/19 Last Taken 07/27/19] Clopidogrel Bisulfate [Plavix] 75 mg PO DAILY 07/30/19 [History Confirmed 07/30/19 Last Taken Unknown] Furosemide [Lasix] 20 mg PO DAILY 07/30/19 [History Confirmed 07/30/19 Last Taken Unknown] Spironolactone [Aldactone] 25 mg PO DAILY 07/30/19 [History Confirmed 07/30/19 Last Taken Unknown] amLODIPine [Norvasc] 10 mg PO DAILY 07/30/19 [History Confirmed 07/30/19 Last Taken Unknown] Levofloxacin [Levaquin] 750 mg PO Q48 #2 tab 08/01/19 [Rx Last Taken Unknown] Atorvastatin [Lipitor] 20 mg PO HS #30 tablet 08/02/19 [Rx Last Taken Unknown] HYDROcodone/APAP 5/325MG [[place] 5-325Mg] 1 tab PO Q4HP PRN #10 tab 08/02/19 [Rx Last Taken Unknown] Medical - DS: Hosp Hospital Course: Ms. Yang is a 43 year old F with a history of CAD status post stenting in May 2018 and March 2017, currently smoker, history of diabetes, and hepatitis C who presented to the ER due to fever, chills, body ache and weakness for 4 days. Patient also states that she had nausea, vomiting and watery sonya rrhea 2 days ago associated with intermittent mild lower abdominal pain. In the ER, UA was positive and a CT abdomen showed pyelonephritis. When I saw this patient in the ER, abdomen symptoms mentioned above, she denied any other symptoms. 07/31 Slept better and feeling better overall. Did have an episode of nausea vomiting earlier. 08/01 Patient doing well. Renal function improved to baseline. No new complaints. Stable for discharge. A: * Acute pyelonephritis * MARTÍNEZ on CKD III: * Current smoker * CAD, s/p stenting * DM type 2: A1c 6.7 * Hx of seizure disorder * Chronic hepatitis C * Hypokalemia * Patient states that she has had diabetes in the past. Now she is not on any diabetic meds. Discharge diagnosis: Pyelonephritis acute kidney injury on chronic disease Secondary discharge diagnosis: CAD tobacco abuse diabetes history of seizure disorder chronic hepatitis C - Time Spent with Patient Total time spent providing and/or coordinating discharge services: Greater than 30 minutes Medical - DS: Exam - Constitutional Vitals: Vital Signs Temp Pulse Resp BP Pulse Ox 08/01/19 07:30 58 L 18 95 08/01/19 06:57 97.3 F 60 18 125/79 95 08/01/19 04:27 97.7 F 62 20 134/84 98 07/31/19 23:41 98.5 F 20 122/70 94 07/31/19 19:47 97.0 F 58 L 20 141/81 100 07/31/19 16:00 97.8 F 64 16 115/70 97 07/31/19 11:55 98.1 F 64 16 111/68 97 Intake and Output 07/31/19 08/01/19 08/01/19 21:59 05:59 13:59 Intake Total 360 1565 1310 Output Total 300 450 Balance 360 1265 860 Intake: IV 965 830 Sodium Chloride 0.9% 1,000 ml @ 965 830 100 mls/hr IV .Q10H [facility] Rx#: [id number] Oral 360 600 480 Output: Void Amount 250 150 Emesis 300 Estimated Blood Loss 50 Other: Meal Lunch Breakfast Percent of Meal Consumed 50% 50% Feeding Ability Independent Independent Urine Appearance Sediment Urine Color Light Petra Dark Yellow Urine Odor Normal # Voids 1 1 Weight 89.857 kg Medical - DS: Data Labs on day of discharge: Labs from last 24 hours 08/01/19 08/01/19 08/01/19 05:41 05:41 05:41 WBC RBC Hgb Hct MCV MCH MCHC RDW Plt Count MPV Gran % Lymph % (Auto) [place] % (Auto) Eos % (Auto) Baso % (Auto) Gran # Lymph # (Auto) [place] # (Auto) Eos # (Auto) Baso # (Auto) Total Counted Seg Neutrophils % Band Neutrophils % Lymphocytes % Monocytes % (Manual) Reactive Lymphocytes Platelet Estimate RBC Morphology Anisocytosis Ovalocytes ESR Sodium 136 Potassium 4.2 Chloride 103 Carbon Dioxide 19 L Anion Gap 14.0 BUN 29 H Creatinine 2.0 H GFR Calculation 29 Glucose 167 H Hemoglobin A1c Estim Average Glucose Uric Acid 8.9 H Calcium 8.4 L Phosphorus 3.8 Magnesium 2.1 Total Bilirubin 0.2 Direct Bilirubin < 0.2 GGT 37 H AST 23 ALT 18 Alkaline Phosphatase 99 Lactate Dehydrogenase 184 Total Creatine Kinase C-Reactive Protein Total Protein 5.9 Albumin 2.5 L Globulin 3.4 Albumin/Globulin Ratio 0.7 L Triglycerides 161 H Procalcitonin 1.02 Urine Eosinophils Ur Random Creatinine U Random Total Protein Ur Random Sodium Complement C3 Pending Complement C4 Pending Tot Complement (CH50) Pending 08/01/19 08/01/19 08/01/19 05:41 05:41 05:00 WBC 10.3 RBC 3.39 L Hgb 9.6 L Hct 29.4 L MCV 86.7 MCH 28.3 MCHC 32.7 RDW 16.3 H Plt Count 227 MPV 10.5 H Gran % 82.9 H Lymph % (Auto) 11.0 L [place] % (Auto) 4.9 Eos % (Auto) 0.8 Baso % (Auto) 0.4 Gran # 8.54 H Lymph # (Auto) 1.13 L [place] # (Auto) 0.50 Eos # (Auto) 0.08 Baso # (Auto) 0.04 Total Counted Seg Neutrophils % Band Neutrophils % Lymphocytes % Monocytes % (Manual) Reactive Lymphocytes Platelet Estimate RBC Morphology Anisocytosis Ovalocytes ESR 84 H Sodium Potassium Chloride Carbon Dioxide Anion Gap BUN Creatinine GFR Calculation Glucose Hemoglobin A1c 6.7 H Estim Average Glucose 146 Uric Acid Calcium Phosphorus Magnesium Total Bilirubin Direct Bilirubin GGT AST ALT Alkaline Phosphatase Lactate Dehydrogenase Total Creatine Kinase C-Reactive Protein 8.9 H Total Protein Albumin Globulin Albumin/Globulin Ratio Triglycerides Procalcitonin Urine Eosinophils None seen Ur Random Creatinine U Random Total Protein Ur Random Sodium < 20 Complement C3 Complement C4 Tot Complement (CH50) 08/01/19 08/01/19 08/01/19 05:00 05:00 05:00 WBC RBC Hgb Hct MCV MCH MCHC RDW Plt Count MPV Gran % Lymph % (Auto) [place] % (Auto) Eos % (Auto) Baso % (Auto) Gran # Lymph # (Auto) [place] # (Auto) Eos # (Auto) Baso # (Auto) Total Counted Seg Neutrophils % Band Neutrophils % Lymphocytes % Monocytes % (Manual) Reactive Lymphocytes Platelet Estimate RBC Morphology Anisocytosis Ovalocytes ESR Sodium Potassium Chloride Carbon Dioxide Anion Gap BUN Creatinine GFR Calculation Glucose Hemoglobin A1c Estim Average Glucose Uric Acid Calcium Phosphorus Magnesium Total Bilirubin Direct Bilirubin GGT AST ALT Alkaline Phosphatase Lactate Dehydrogenase Total Creatine Kinase 23 L C-Reactive Protein Total Protein Albumin Globulin Albumin/Globulin Ratio Triglycerides Procalcitonin Urine Eosinophils Ur Random Creatinine 75.5 U Random Total Protein 39 Ur Random Sodium Complement C3 Complement C4 Tot Complement (CH50) 07/31/19 07/31/19 13:26 13:26 WBC 16.4 H RBC 3.40 L Hgb 9.6 L Hct 29.1 L MCV 85.6 MCH 28.2 MCHC 33.0 RDW 16.2 H Plt Count 235 MPV 10.2 Gran % Lymph % (Auto) [place] % (Auto) Eos % (Auto) Baso % (Auto) Gran # Lymph # (Auto) [place] # (Auto) Eos # (Auto) Baso # (Auto) Total Counted 100 Seg Neutrophils % 84 H Band Neutrophils % 6 Lymphocytes % 6 L Monocytes % (Manual) 3 Reactive Lymphocytes 1 Platelet Estimate Normal RBC Morphology Abnorm A Anisocytosis 1+ A Ovalocytes Few A ESR Sodium 137 Potassium 4.0 Chloride 105 Carbon Dioxide 19 L Anion Gap 13.0 BUN 35 H Creatinine 2.6 H GFR Calculation 21 Glucose 133 H Hemoglobin A1c Estim Average Glucose Uric Acid 9.4 H Calcium 8.5 L Phosphorus 3.6 Magnesium 2.1 Total Bilirubin 0.2 Direct Bilirubin < 0.2 GGT 22 AST 23 ALT 19 Alkaline Phosphatase 91 Lactate Dehydrogenase 175 Total Creatine Kinase C-Reactive Protein Total Protein 6.4 Albumin 2.8 L Globulin 3.6 Albumin/Globulin Ratio 0.8 L Triglycerides 173 H Procalcitonin Urine Eosinophils Ur Random Creatinine U Random Total Protein Ur Random Sodium Complement C3 Complement C4 Tot Complement (CH50) Preliminary micro results at discharge 07/30/19 01:36 Urine Culture - Preliminary Urine - Clean Void Mid-Stream 07/31/19 05:31 Blood Culture - Preliminary Blood 07/31/19 05:25 Blood Culture - Preliminary Blood Medical - DS: A/P - Patient/Caregiver Discharge Instructions Activity: increase activity as tolerated Diet: Cardiac Prescriptions: Levofloxacin [Levaquin] 750 mg PO Q48 #2 tab Atorvastatin [Lipitor] 20 mg PO HS #30 tablet HYDROcodone/APAP 5/325MG [[place] 5-325Mg] 1 tab PO Q4HP PRN #10 tab PRN Reason: Per Pain Protocol - Follow up Plan Follow up with: Cj Au ARNP [Primary Care Provider] - Missael Newberry MD [Physician] - Disposition: Home, Self-Care Prognosis: Fair Rehab Potential: Fair Overall status at discharge: patient is progressing back to baseline Medical - DS: Qual - VTE Deep Vein Thrombosis/Pulmonary Embolism Present on Admission: No
--- NOTE | 2019-08-01 17:01 | Nephrology Progress Note ---
Subjective Patient information: Note initiated : 08/01/19 at 4:55 pm Service Date, if different from initiated Date: [] Patient: Dawn Yang 43 y/o F admitted on 07/31/19 for kidney trouble. Chief Complaint: [] Principal diagnosis: Possible pyelonephritis with renal failure Interval history: This patient was admitted with elevated white count, no documented fever, no right-sided flank pain, was nontoxic-appearing, had pyuria but no bacteriuria and urinalysis failed to grow anything more than less than 10,000 CFU of gram- negative bacillus. A noncontrast CT demonstrated some perinephric inflammatory stranding and a question was raised of pyelonephritis. Additionally the [id number]-[id number] creatinine was markedly elevated and the oral report I got was 4.0 mg/dl, but in fact it was closer to 2 mg/dL on laboratory testing which is not far off of her baseline which was 1.5 as documented in the initial consult yesterday. Furthermore she has had a recent left heart cath, an episode of accelerated hypertension with rapid blood pressure control, at least 2 IV contrast procedures at [facility], and while she may have had some degree of acute renal failure it seems to be improving. Today her white count was down into the normal range, culture results are as outlined above plus no positive blood cultures. She is never looked toxic like person with pyelonephritis appears, and she had no obstruction or stones so there is no concern for a sending pyelonephritis. Patient is afebrile and pyelonephritis has been ruled out, looks like she will give a couple more doses of oral antibiotics. Since she is hepatitis C positive and has proteinuria and elevated sed rate, hepatitis C related glomerular nephritis MPGN or even p-ANCA related GN remain as possibilities and will be worked up as an outpatient. Most likely this has an element of prerenal azotemia as her fractional excretion of sodium is reduced despite hydration, although this is also seen in acute glomerulonephritides. Pertinent ROS: Nothing to add Additional PMFSH (Level 3 Only): Nothing to add Objective - Vital Signs Vital signs: Vital Signs Temp Pulse Resp BP Pulse Ox 08/01/19 16:00 36.3 C 62 18 135/87 100 08/01/19 12:00 35.9 C L 60 18 115/77 100 08/01/19 07:30 58 L 18 95 08/01/19 06:57 36.3 C 60 18 125/79 95 08/01/19 04:27 36.5 C 62 20 134/84 98 07/31/19 23:41 36.9 C 20 122/70 94 07/31/19 19:47 36.1 C 58 L 20 141/81 100 Intake and Output 08/01/19 08/01/19 08/01/19 05:59 13:59 21:59 Intake Total 1565 2380 1240 Output Total 300 675 550 Balance 1265 1705 690 Intake: IV 965 1000 1000 Sodium Chloride 0.9% 1,000 ml @ 965 1000 1000 75 mls/hr IV .[id number] [facility] Rx#: [id number] Oral 600 1380 240 Output: Void Amount 250 375 550 Emesis 300 Estimated Blood Loss 50 Other: Meal Lunch Percent of Meal Consumed 15% Feeding Ability Independent Urine Appearance Clear Clear Urine Color Dark Yellow Dark Yellow Urine Odor Normal Normal # Voids 1 Intake & Output: Intake & Output 08/01/19 08/01/19 08/01/19 05:59 13:59 21:59 Intake Total 1565 2380 1240 Output Total 300 675 550 Balance 1265 1705 690 Intake: IV 965 1000 1000 Sodium Chloride 0.9% 1,000 ml @ 965 1000 1000 75 mls/hr IV .[id number] [facility] Rx#: [id number] Oral 600 1380 240 Output: Void Amount 250 375 550 Emesis 300 Estimated Blood Loss 50 Other: Meal Lunch Percent of Meal Consumed 15% Feeding Ability Independent Urine Appearance Clear Clear Urine Color Dark Yellow Dark Yellow Urine Odor Normal Normal # Voids 1 - General Appearance General appearance: well-developed, well-nourished, appears started age EENT: ATNC, PERRL Neck: no JVD, no carotid bruit, supple Respiratory: no kyphosis, no scoliosis Cardiology: no murmurs, no rub Gastrointestinal: normoactive bowel sounds, no guarding, no masses (NO CVAT) Integumentary: no rash, warm and dry Neurologic: no focal deficit, alert and oriented x3, strength 5/5, CN 3-12 intact Musculoskeletal: no deformities, no erythema, no cyanosis (No embolic lesions in feet), no clubbing Psychiatric: mood/affect appropriate - Lab 08/01/19 05:41 08/02/19 05:27 Most recent lab results Calcium 8.4 mg/dl (8.6-10.4) L 08/01/19 05:41 Phosphorus 3.8 mg/dL (2.7-4.5) 08/01/19 05:41 Magnesium 2.1 mg/dL (1.6-2.5) 08/01/19 05:41 Assessment and Plan (1) Acute on chronic renal failure 1. CKD g3/a3 with baseline SCr ~1.5 with non-nephrotic proteinuria in the setting of diabetes, IVDA (methamphetamine) and untreated Hep C from needle sharing with sister. a. If low C3/C4 or pANCA positive => may be vasculitis related to IVDA and Hep C. In either case she should be treated for hep C and since she had PCI/ESHA 04/2019, the risk of stopping plavix and ASA to do a kidney Bx >>> benefit of knowing her underlying disease. Plan: 1. Treat DM 2. Treat Hep C 3. MANSOOR or ARB with goal of 50% decrease in proteinuria 4. No NSAIDs 5. Goal BP 130/80 2. ARF is multifactorial including to recent IVC procedures at [facility], accelerated HTN with rapid control of BP late last month at [facility] (220/110=> 130/80), nephrotoxic Rx and antibiotics, dehydration and excessive volume contraction. 1. Monitor GFR as outpatient and anticipate return to baseline SCr ~1.5 mg/dl 2. Follow up on inpatient labs Status: Acute Priority: High Qualifiers: Chronic kidney disease stage: stage 3 (moderate) (2) Chronic hepatitis C Status: Chronic (3) Essential hypertension Status: Chronic
[2019-08-01] MEDS: HYDROcodone/APAP 5/325MG TABLET PO PRN (17:40)
[2019-08-01] MEDS ORDERED: ATORVASTATIN 20 MG TABLET PO SCH (21:00)
[2019-08-01] MEDS: SERTRALINE 50 MG TABLET PO SCH (21:16)
[2019-08-02] MEDS: HYDROcodone/APAP 5/325MG TABLET PO PRN ×2 (02:19→10:15)
[2019-08-02 06:46] LABS: ALT/SGPT 12 U/l (0-40); AST/SGOT 12 U/l (0-37); Albumin 2.5 gm/dL (3.2-5.2); Albumin/Globulin Ratio 0.8 (1.0-2.3); Alkaline Phosphatase 89 U/L (39-117); Bilirubin,Direct < 0.2 mg/dL (0.0-0.3); Bilirubin,Total 0.2 mg/dL (0.0-1.0); Calcium 8.5 mg/dl (8.6-10.4); Carbon Dioxide 20 mmol/L (22-30); Chloride 106 mmol/L (96-108); Globulin 3.3 gm/dL (2.2-3.7); Glomerular Filtration Rate 36; Glucose 154 mg/dL (70-105); Lactate Dehydrogenase 157 U/L (94-250); Phosphorous 4.2 mg/dL (2.7-4.5); Triglycerides 127 mg/dl (<150); Uric Acid 8.9 mg/dL (2.5-8.0)
[2019-08-02 06:56] LABS: Blood Urea Nitrogen 22 mg/dl (6-20)
[2019-08-02] MEDS: PANTOPRAZOLE 40 MG TABLET PO SCH (07:00)
[2019-08-02] MEDS: 0.9 % SODIUM CHLORIDE 10 ML SYRINGE IV SCH (07:00)
[2019-08-02] MEDS: INSULIN LISPRO 1 UNIT/0.01 ML UNIT SQ SCH ×2 (08:05→11:46)
[2019-08-02] MEDS: amLODIPine 10 MG TABLET PO SCH (08:06)
[2019-08-02] MEDS: ASPIRIN 81 MG TAB.CHEW PO SCH (08:06)
[2019-08-02] MEDS: CLOPIDOGREL 75 MG TABLET PO SCH (08:07)
[2019-08-02] MEDS: HEPARIN 5,000 UNIT/ML VIAL SQ SCH (08:07)
[2019-08-02] MEDS: DIVALPROEX SODIUM 250 MG TABLET PO SCH (08:07)
[2019-08-02] MEDS: cefTRIAXone 1 GM VIAL IV SCH (08:42)
--- NOTE | 2019-08-02 08:59 | Nephrology Progress Note ---
Subjective Patient information: Note initiated : 08/02/19 at 8:57 am Service Date, if different from initiated Date: [] Patient: Dawn Yang 43 y/o F admitted on 07/31/19 for kidney trouble. Chief Complaint: [] Principal diagnosis: Possible pyelonephritis with renal failure Interval history: Pt seen on AM rounds and data reviewed. Pertinent ROS: N/A Additional PMFSH (Level 3 Only): N/A Objective - Vital Signs Vital signs: Vital Signs Temp Pulse Resp BP Pulse Ox 08/02/19 07:52 35.9 C L 66 14 134/90 99 08/02/19 03:50 36.4 C 61 14 118/77 96 08/01/19 23:12 36.4 C 64 14 156/92 100 08/01/19 18:55 36.4 C 64 14 119/76 100 08/01/19 16:00 36.3 C 62 18 135/87 100 08/01/19 12:00 35.9 C L 60 18 115/77 100 Intake and Output 08/01/19 08/02/19 08/02/19 21:59 05:59 13:59 Intake Total 1590 880 Output Total 550 Balance 1040 880 Intake: IV 1000 Sodium Chloride 0.9% 1,000 ml @ 1000 75 mls/hr IV .[id number] [facility] Rx#: [id number] Oral 590 880 Output: Void Amount 550 Other: Meal Dinner Percent of Meal Consumed 30% Feeding Ability Independent Urine Appearance Clear Urine Color Dark Yellow Urine Odor Normal # Voids 1 3 Weight 89.131 kg Intake & Output: Intake & Output 08/01/19 08/02/19 08/02/19 21:59 05:59 13:59 Intake Total 1590 880 Output Total 550 Balance 1040 880 Weight 89.131 kg Intake: IV 1000 Sodium Chloride 0.9% 1,000 ml @ 1000 75 mls/hr IV .[id number] [facility] Rx#: [id number] Oral 590 880 Output: Void Amount 550 Other: Meal Dinner Percent of Meal Consumed 30% Feeding Ability Independent Urine Appearance Clear Urine Color Dark Yellow Urine Odor Normal # Voids 1 3 - General Appearance General appearance: well-developed, well-nourished, appears started age EENT: ATNC, PERRL, mucous membranes moist Neck: no JVD, no thyromegaly Respiratory: no kyphosis, clear Cardiology: no murmurs, no rub, no gallops, no edema, regular rhythm Gastrointestinal: normoactive bowel sounds, no tenderness Integumentary: no rash (No CVAT), warm and dry (No embolic lesions in feet or toes) Neurologic: no focal deficit, no asterixis, strength 5/5, CN 3-12 intact Musculoskeletal: no deformities, no erythema Psychiatric: mood/affect appropriate - Lab 08/01/19 05:41 08/02/19 05:27 Most recent lab results Calcium 8.5 mg/dl (8.6-10.4) L 08/02/19 05:27 Phosphorus 4.2 mg/dL (2.7-4.5) 08/02/19 05:27 Magnesium 2.1 mg/dL (1.6-2.5) 08/02/19 05:27 Assessment and Plan (1) Acute on chronic renal failure 1. CKD g3/a3 with baseline SCr ~1.5 with non-nephrotic proteinuria in the setting of diabetes, IVDA (methamphetamine) and untreated Hep C from needle sharing with sister. a. If low C3/C4 or pANCA positive => may be vasculitis related to IVDA and Hep C. In either case she should be treated for hep C and since she had PCI/ESHA 04/2019, the risk of stopping plavix and ASA to do a kidney Bx >>> benefit of knowing her underlying disease. Plan: 1. Treat DM 2. Treat Hep C 3. MANSOOR or ARB with goal of 50% decrease in proteinuria 4. No NSAIDs 5. Goal BP 130/80 2. ARF is multifactorial including to recent IVC procedures at [facility], accelerated HTN with rapid control of BP late last month at [facility] (220/110=> 130/80), nephrotoxic Rx and antibiotics, dehydration and excessive volume contraction. 1. Monitor GFR as outpatient and anticipate return to baseline SCr ~1.5 mg/dl 2. Follow up on inpatient labs Status: Acute Priority: High Qualifiers: Chronic kidney disease stage: stage 3 (moderate) (2) Chronic hepatitis C Status: Chronic (3) Essential hypertension Status: Chronic - Narrative A/P Narrative: 1. No objection to discharge 2. Follow up with me in 2 weeks 3. ANCA screen ordered today at 0939 before discharge 4. Outpatient ID consult to evaluate and treat Hep C.
[2019-08-07 09:42] LABS: C3, Serum 151 mg/dL (83-193); C4, Serum 17 mg/dL (15-57)
[2019-08-07 15:11] LABS: Cannabinoid Confirmation POSITIVE (N)
== END 2019-08-02 12:45 | disposition home or self-care (01) | DRG 690 ==
LOC: ED 21:00 → ICU 07-31 00:33 → MEDSUR 07-31 21:34
PROVIDERS: ADMIT Internal Medicine; ATTEND Internal Medicine